=== PATIENT | female | born 2000 | race Caucasian/White ===

== ENCOUNTER 2024-07-25 18:48 | Emergency (ER) | payer MEDICAID ==
[~2024-07-25] VITALS: Ht 162.6 cm; Wt 72.0 kg
[2024-07-25 18:58] VITALS: O2SAT 98
[2024-07-25 20:49] LABS: CLARITY URINE CLOUDY (CLEAR); COLOR URINE DARK YELLOW (YELLOW); GLUCOSE URINE NEGATIVE (NEGATIVE); KETONES URINE 3+ (NEGATIVE); LEUKOCYTE ESTERASE URINE 2+ (NEGATIVE); NITRITE URINE NEGATIVE (NEGATIVE); OCCULT BLOOD URINE NEGATIVE (NEGATIVE); PROTEIN URINE TRACE (NEGATIVE); SPECIFIC GRAVITY URINE 1.025 (1.005-1.030)
[2024-07-25 21:16] LABS: BACTERIA URINE 3+; RBC URINE 0-2 /hpf (0-2); SQUAMOUS EPITHELIAL CELL URINE 3+ /lpf (RARE/1+)
[2024-07-25] MEDS: ONDANSETRON 4MG ODT PO ONE (23:00)
[2024-07-26 00:12] LABS: BASOPHILS % 0.2 % (0.0-2.0); EOSINOPHILS % 0.2 % (0.0-5.0); HEMATOCRIT. 39.5 % (36.0-48.0); HEMOGLOBIN. 13.1 g/dL (12.0-16.0); LYMPHOCYTES % 21.5 % (20.0-50.0); MEAN CORPUSCULAR HEMOGLOBIN 28.1 pg (28.0-32.0); MEAN CORPUSCULAR HGB CONC 33.2 g/dL (31.0-37.0); MEAN CORPUSCULAR VOLUME 84.6 fL (81.0-99.0); MEAN PLATELET VOLUME 7.4 fl (7.4-10.4); MONOCYTES % 7.1 % (2.0-8.0); PLATELET 326 x1000/uL (130-400); RED BLOOD CELL COUNT 4.67 mill/uL (4.2-5.4); RED CELL DISTRIBUTION WIDTH 15.4 % (11.6-14.6); WHITE BLOOD COUNT 10.5 x1000/uL (4.5-11.0)
[2024-07-26 00:22] LABS: CHLORIDE 103 mEq/L (98-107); POTASSIUM 3.5 mEq/L (3.5-5.1); SODIUM 137 mEq/L (136-145)
[2024-07-26 00:23] LABS: CALCIUM 10.9 mg/dL (8.7-10.4); CARBON DIOXIDE 22 mEq/L (21-32)
[2024-07-26 00:28] LABS: CREATININE 0.6 mg/dL (0.6-1.0); GLUCOSE 85 mg/dL (70-105); UREA NITROGEN BLOOD 8 mg/dL (9-23)
[2024-07-26 00:30] LABS: ALANINE AMINOTRANSFERASE 23 IU/L (10-49); ALBUMIN 5.1 g/dL (3.2-4.8); ASPARTATE AMINOTRANSFERASE 20 IU/L (<34); BILIRUBIN DIRECT 0.2 mg/dL (<=3.0); BILIRUBIN TOTAL 0.8 mg/dL (0.1-1.0); PROTEIN TOTAL 8.4 g/dL (6.0-8.3)
[2024-07-26 00:32] LABS: HCG SCREEN POSITIVE
[2024-07-26] MEDS: ONDANSETRON 4MG ODT PO ONE (01:00)
[2024-07-26] MEDS ORDERED: PREN-176 MT (02:43)
[2024-07-26] MEDS ORDERED: CEPH500C2 MT (02:43)
[2024-07-26 03:03] VITALS: BP 123/78; PULSE 69; RESP 19; TEMP 36.66960; O2SAT 99
== END 2024-07-26 03:03 | disposition home or self-care (01) ==
LOC: ER 18:48
DX: O26.891 Other specified pregnancy related conditions, first trimester (principal); R10.31 Right lower quadrant pain; R11.0 Nausea; R82.71 Bacteriuria; Z3A.01 Less than 8 weeks gestation of pregnancy
CPT/HCPCS: 99284; 80076; 80048; 81003; 84703; 84702; 83690; 85025; 36415; 76801; 76817; Q0162

== ENCOUNTER 2024-11-16 00:44 | Emergency (ER) | payer MEDICAID ==
[~2024-11-16] VITALS: Ht 162.6 cm; Wt 77.0 kg
[~2024-11-16 00:44] MED LIST: CEPH500C2 MT; PREN-176 MT
[2024-11-16 01:11] VITALS: O2SAT 99
[2024-11-16 01:13] VITALS: BP 106/59; PULSE 93; RESP 16; TEMP 36.9; O2SAT 98
[2024-11-16] MEDS ORDERED: CEPH500C2 MT (01:32)
[2024-11-16] MEDS ORDERED: TOPUD PO (01:32)
== END 2024-11-16 02:08 | disposition home or self-care (01) ==
LOC: ER 00:44
DX: O26.892 Other specified pregnancy related conditions, second trimester (principal); L03.116 Cellulitis of left lower limb; Z3A.22 22 weeks gestation of pregnancy
CPT/HCPCS: 99283

== ENCOUNTER 2024-12-12 01:13 | Emergency (ER) | payer MEDICAID ==
[~2024-12-12] VITALS: Ht 160 cm; Wt 74.0 kg
[~2024-12-12 01:13] MED LIST changes: +TOPUD PO
[2024-12-12 01:28] VITALS: O2SAT 98
[2024-12-12 01:33] VITALS: TEMP 36.8
[2024-12-12] MEDS: ACETAMINOPHEN 500MG TABLET PO ONE (02:17)
[2024-12-12 03:54] VITALS: BP 106/52; PULSE 60; RESP 18; O2SAT 97
[2024-12-12] MEDS: CEFTRIAXONE SODIUM 500MG VIAL IM ONE (04:00)
[2024-12-12] MEDS ORDERED: CEPH500C2 MT (04:04)
[2024-12-12 04:43] LABS: CLARITY URINE CLOUDY (CLEAR); COLOR URINE YELLOW (YELLOW); GLUCOSE URINE NEGATIVE (NEGATIVE); KETONES URINE TRACE (NEGATIVE); LEUKOCYTE ESTERASE URINE TRACE (NEGATIVE); NITRITE URINE NEGATIVE (NEGATIVE); OCCULT BLOOD URINE NEGATIVE (NEGATIVE); PH URINE 6.5 (4.5-8.0); PROTEIN URINE NEGATIVE (NEGATIVE); UROBILINOGEN URINE 0.2 E.U./dL (0.2-1.0)
[2024-12-12 05:25] LABS: SQUAMOUS EPITHELIAL CELL URINE 2+ /lpf (RARE/1+)
[2024-12-12 05:26] LABS: RBC URINE 0-2 /hpf (0-2); WBC URINE 0-2 /hpf (0-2)
[2024-12-12 05:30] LABS: BACTERIA URINE 1+; YEAST URINE 1+
[2024-12-12 05:31] LABS: AMORPHOUS SEDIMENT URINE 1+ /lpf; CALCIUM OXALATE CRYSTALS URINE 1+ /lpf
[2024-12-14 04:07] LABS: CHLAMYDIA TRACHOMATIS NAA Negative (Negative); NEISSERIA GONORRHOEAE NAA Negative (Negative)
== END 2024-12-12 04:17 | disposition home or self-care (01) ==
LOC: ER 01:13
DX: L25.9 Unspecified contact dermatitis, unspecified cause (principal); Z79.899 Other long term (current) drug therapy
CPT/HCPCS: 99283; 87491; 87591; 81003; 96372; J0696

== ENCOUNTER 2025-05-06 23:39 | Emergency (ER) | payer MEDICAID ==
[~2025-05-06] VITALS: Ht 160 cm; Wt 69.4 kg
[2025-05-06 23:54] VITALS: O2SAT 98
[2025-05-07] MEDS: IBUPROFEN 600MG TABLET PO ONE (01:11)
[2025-05-07 02:36] VITALS: BP 126/76; PULSE 77; RESP 18; TEMP 36.7; O2SAT 100
== END 2025-05-07 02:46 | disposition home or self-care (01) ==
LOC: ER 05-07 01:07
DX: L73.9 Follicular disorder, unspecified (principal)
CPT/HCPCS: 10060; 99283